=== PATIENT | female | born 1950 | race Hispanic/Latino ===

== ENCOUNTER 2018-02-25 10:28 | Outpatient (CLI) | payer MEDICARE ==
[2018-02-25 10:58] LABS: Blood Urea Nitrogen 19 mg/dL (7-17)
--- NOTE | 2018-02-26 08:18 | Cat Scan Report ---
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 TECHNIQUE: Helical CT following IV contrast. Sagittal and coronal reformatted images. 3D volume rendering technique. Stenosis was calculated using NASCET criteria with the distal ICA being standard diameter. FINDINGS: The visualized aortic arch, innominate artery and proximal bilateral subclavian arteries are widely patent with less than 20% stenosis. There are moderate calcific plaques in the aortic arch. No aneurysm or dissection identified. Within the right carotid system: There are severe partially calcified plaques throughout the right carotid bulb extending to the proximal right ICA with stenosis measuring greater than 90%. The remainder of the right carotid system is unremarkable. Within the left carotid system: Mild partially calcified plaques are identified at the left bifurcation but no hemodynamically significant stenosis is identified. This stenosis in the proximal left ICA measured at 30%. The cervical vertebral arteries are patent with less than 30% stenosis. IMPRESSION: Severe stenosis at the right carotid bifurcation/right carotid bulb. See above.
== END 2018-02-25 10:29 | disposition home or self-care (01) ==
LOC: CT 10:28
PROVIDERS: ATTEND Surgery Vascular Surgery
DX: I65.03 Occlusion and stenosis of bilateral vertebral arteries (principal)
CPT/HCPCS: 36415; 70498; 82565; 84520; Q9967

== ENCOUNTER 2018-02-28 07:38 | Day surgery (SDC) | payer MEDICARE ==
[~2018-02-28 07:38] MED LIST: NACL 0.9% 1000 ML 1,000 ML IV SCH; VANCOMYCIN/NS 1 GM/250 ML 1 GM/250 ML BAG IV NR
[2018-02-28 09:30] LABS: Basophils % (Auto) 0.5 % (0.0-1.8); Eosinophils # (Auto) 0.1 K/mm3 (0.0-0.4); Eosinophils % (Auto) 1.5 % (0.0-4.3); Hematocrit 35.5 % (30.3-42.9); Hemoglobin 11.5 gm/dl (10.1-14.3); Lymphocytes # (Auto) 1.8 K/mm3 (1.2-5.4); Lymphocytes % (Auto) 18.6 % (13.4-35.0); Mean Corpuscular HGB Conc 32 % (30-34); Mean Corpuscular Hemoglobin 28 pg (28-32); Mean Corpuscular Volume 85 fl (79-97); Monocytes # (Auto) 0.9 K/mm3 (0.0-0.8); Monocytes % (Auto) 9.4 % (0.0-7.3); Platelet Count 238 K/mm3 (140-440); Red Blood Count 4.18 M/mm3 (3.65-5.03); Red Cell Distribution Width 14.7 % (13.2-15.2)
[2018-02-28 09:42] LABS: INR 0.99 (0.87-1.13)
[2018-02-28 09:43] LABS: BUN/Creatinine Ratio 24; Blood Urea Nitrogen 19 mg/dL (7-17); Hemolysis Index 3; Partial Thromboplastin Time 22.4 Sec. (24.2-36.6)
[2018-02-28] MEDS ORDERED: HEPARIN/NS 5000 UNIT/500ML(CATH LAB) 1,000 ML IR ONE (10:05)
[2018-02-28] MEDS ORDERED: HEPARIN 10,000 UNITS/10 ML ONE (10:05)
[2018-02-28] MEDS ORDERED: NACL 0.9% 500 ML 500 ML ONE (10:25)
[2018-02-28] MEDS: SUBLIMAZE ONE ×2 (10:38→11:07)
[2018-02-28] MEDS: VERSED ONE ×2 (10:38→11:07)
[2018-02-28] MEDS: XYLOCAINE 2% INFILTRATI ONE ×2 (10:42→11:07)
--- NOTE | 2018-02-28 11:27 | Short Stay Summary ---
Short Stay Documentation Date of service: 02/28/18 Narrative H&P: 67 year old female with right ICA high grade stenosis with arm claudication symptoms concerning for a proximal obstructive lesion in the innominate artery or multifocal stenotic lesions who presents for angiography. - History Principal diagnosis: Right internal carotid stenosis and right arm claudication H&P: obtained from office - Allergies and Medications Current Medications: Allergies Penicillins Allergy (Verified 02/28/18 07:55) Swelling Home Medications Medication Instructions Recorded Confirmed Last Taken Type Aspirin EC [Aspirin Enteric Coated 81 mg PO QDAY 02/28/18 02/28/18 02/27/18 History TAB] AtorvaSTATin [Lipitor] 80 mg PO QHS 02/28/18 02/28/18 02/27/18 History Carvedilol [Coreg] 25 mg PO BID 02/28/18 02/28/18 02/27/18 History Digoxin [Digox] 125 mcg PO DAILY 02/28/18 02/28/18 02/27/18 History Edoxaban Tosylate [Savaysa] 60 mg PO DAILY 02/28/18 02/28/18 02/26/18 History Furosemide [Lasix] 20 mg PO DAILY 02/28/18 02/28/18 02/27/18 History Gabapentin [Neurontin] 300 mg PO TID 02/28/18 02/28/18 02/27/18 History Insulin Degludec/Liraglutide 3 ml SQ QHS 02/28/18 02/28/18 02/27/18 History [Xultophy 100 Unit-3.6MG/ml Pen] Spironolactone [Aldactone] 25 mg PO QDAY 02/28/18 02/28/18 02/27/18 History metFORMIN [Glucophage] 1,000 mg PO BID 02/28/18 02/28/18 02/26/18 History Active Medications Sodium Chloride (Nacl 0.9% 1000 Ml) 1,000 mls @ 42 mls/hr IV DIRECT BHARATI Vancomycin HCl (Vancomycin/Ns 1 Gm/250 Ml) 1 gm in 250 mls @ 166.667 mls/hr IV PREOP NR; Protocol Stop: 02/28/18 23:59 Last Admin: 02/28/18 10:34 Dose: 250 mls - Physical exam General appearance: no acute distress Lungs: Normal air movement Gastrointestinal: normal Extremities: normal temperature, normal color - Brief post op/procedure progress note Date of procedure: 02/28/18 Pre-op diagnosis: Right internal carotid stenosis and right arm claudication Post-op diagnosis: same Procedure: angiography of the chest, right arm, and right neck Anesthesia: local (w/ conscious sedation) Surgeon: JEWELS ARMSTRONG Estimated blood loss: minimal Condition: stable - Hospital course Hospital course: Can be discharged in 4 hrs with pressure dressing. Restart anticoagulation in 2 days. - Disposition Condition at discharge: Stable Disposition: [id number] TO HOME OR SELFCARE - Discharge Diagnoses (1) Carotid artery stenosis Status: Acute (2) Right hand pain Status: Acute (3) Abnormal carotid duplex scan Status: Acute (4) Abnormal Doppler ultrasound of carotid artery Status: Acute Short Stay Discharge Plan Activity: advance as tolerated Weight Bearing Status: Weight Bear as Tolerated Diet: regular Wound: keep clean and dry Special Instructions: other (hold anticoagulation for 2 days) Follow up with: MARGARITA RAPHAEL MD [Primary Care Provider] - 7 Days
--- NOTE | 2018-02-28 11:41 | Operative Report ---
Operative Report Operative Report: EXAM: 1. Ultrasound-guided access of the left common femoral artery. 2. Angiography of the left lower extremity. 3. Selection of the thoracic aorta with angiography in multiple projections 4. Selection of the right brachial artery with angiography of the right upper extremity 5. Selection of the right axillary artery with angiography of the right upper extremity 6. Selection of the right subclavian artery with angiography of the right upper extremity 7. Selection of the right innominate artery with angiography of the right common carotid artery DATE: 02/28/18 [employer] FRY: JEWELS ARMSTRONG MD INDICATION: Abnormal carotid duplex concerning for innominate artery stenosis versus multifocal stenosis with claudication-like right hand pain and known right internal carotid artery severe stenosis. CT angiogram was performed with inadequate imaging. Patient now presents for conventional angiography. MEDICATIONS: Please see nursing report for full details. DEVICES: None CONTRAST: 60 mL's of nonionic contrast PROCEDURE: The risks, benefits, and alternatives were discussed with the patient; written informed consent was obtained. The patient's groins were prepped and draped in a sterile fashion. The right common femoral artery was evaluated with ultrasound, but there was severe narrowing within the artery and therefore I decided to evaluate the left common femoral artery. The left common femoral artery had moderate stenosis with it, which was less severe than the right. Under direct ultrasound guidance, the left common femoral artery was accessed with a 21-gauge micropuncture needle. 0.018 inch wire was passed into the aorta. Needle was exchanged for transitional dilator. I was exchanged for 0.035 inch wire. Transitional dilator was exchanged for 5 Haitian sheath. Digital subtraction angiography was performed sheath demonstrating appropriate puncture, above the bifurcation by approximately a centimeter, and below the inferior epigastric artery. Digital subtraction angiography demonstrated patency of the left external iliac artery, but greater than 50% narrowing in the mid left common femoral artery. The left profunda femoral artery was patent. The left superficial femoral artery had a proximal 50% narrowing within it. Pigtail catheter was advanced over the wire and used to select the ascending thoracic aorta. Power injection was performed in the JESSICA and REYNOSO projections demonstrating patency of the thoracic aorta with patency of the left subclavian artery, and visualized portion of the proximal left axillary artery. Part of the left axillary artery was obscured by the ICD in her left chest. The left common carotid artery was patent. The left proximal and mid vertebral artery was patent and antegrade. The right innominate artery was patent. The bifurcation of the right subclavian artery and common carotid artery was patent. The right mid and proximal common carotid artery was patent. There is severe stenosis at the level of the bifurcation of the right internal carotid artery bulb which involved the distal-most right common carotid artery. C2 Cobra glide was used to select the right innominate artery which was then exchanged for vertebral catheter. The right brachial artery was selected. Digital subtraction angiography was performed in the right brachial artery, and the right axillary artery, and the right subclavian artery, and in the right innominate artery. The right radial artery, ulnar artery, interosseous artery, brachial artery, and axillary artery was patent. The right subclavian artery had a 20% narrowing within it. The right proximal and mid vertebral artery was patent and antegrade. Right common carotid artery was patent as described earlier. The right innominate artery was patent. All wires and catheters were removed. Sheath was removed and pressure was held until hemostasis was achieved. Patient tolerated the procedure well. No immediate postprocedure complication. FINDINGS: See procedure note above. IMPRESSION: 1. Successful selection of the thoracic aorta and right brachial artery from the left femoral artery approach with angiography of the right upper extremity, right common carotid artery, and thoracic aorta.
[2018-02-28 15:37] VITALS: BP 138/75
== END 2018-02-28 15:30 | disposition home or self-care (01) ==
LOC: CATHLABREC 07:38
PROVIDERS: ATTEND Radiology Diagnostic Radiology
DX: I65.03 Occlusion and stenosis of bilateral vertebral arteries (principal); I10 Essential (primary) hypertension; E11.40 Type 2 diabetes mellitus with diabetic neuropathy, unspecified; E78.00 Pure hypercholesterolemia, unspecified; Z79.899 Other long term (current) drug therapy; Z88.0 Allergy status to penicillin
CPT/HCPCS: 36225; 36415; 75605; 75710; 76937; 80048; 82962; 85025; 85610; 85730; 96365; 99156; 99157; C1769; J1644; J2250; J3010; J3370; J7040; Q9967